=== PATIENT | female | born 1990 | race Caucasian/White ===

== ENCOUNTER 2022-08-11 07:20 | Day surgery (SDC) | payer OTHER ==
[2022-08-11 09:03] VITALS: BP 116/74
== END 2022-08-11 08:52 | disposition home or self-care (01) | DRG 392 ==
LOC: ENDO 07:20 → ORM 08:45 → ENDO 08:52 → ORM 10:00
PROVIDERS: ATTEND Surgery
PROC: 0DBB8ZX Excision of Ileum, Via Natural or Artificial Opening Endoscopic, Diagnostic (ICD-10-PCS; principal; 2022-08-11)
PROC: 0DBE8ZX Excision of Large Intestine, Via Natural or Artificial Opening Endoscopic, Diagnostic (ICD-10-PCS; 2022-08-11)
PROC: 0DB98ZX Excision of Duodenum, Via Natural or Artificial Opening Endoscopic, Diagnostic (ICD-10-PCS; 2022-08-11)
PROC: 0DB78ZX Excision of Stomach, Pylorus, Via Natural or Artificial Opening Endoscopic, Diagnostic (ICD-10-PCS; 2022-08-11)
DX: R19.7 Diarrhea, unspecified (principal); K29.70 Gastritis, unspecified, without bleeding